=== PATIENT | male | born 1990 | race African-American/Black ===

== ENCOUNTER 2023-07-17 15:49 | Emergency (ER) | payer OTHER ==
[~2023-07-17] VITALS: Ht 167.6 cm; Wt 103.3 kg
[2023-07-17] MEDS ORDERED: methylPREDNISolone SOD SUCC 125 MG/2 ML VIAL IV ONE (16:30)
[2023-07-17] MEDS ORDERED: PREDNISONE20 MG PO (17:54)
[2023-07-17 18:11] VITALS: BP 114/60
== END 2023-07-17 18:12 | disposition home or self-care (01) ==
LOC: ED 15:49
DX: T78.1XXA Other adverse food reactions, not elsewhere classified, initial encounter (principal)
CPT/HCPCS: J2930